=== PATIENT | male | born 1930 | race Caucasian/White ===

== ENCOUNTER 2018-02-23 10:43 | Day surgery (SDC) | payer MEDICARE ==
[2018-02-22 10:41] VITALS: BMI 15.6
[~2018-02-23 10:43] MED LIST: LACTATED RINGERS 1,000 ML IV SCH; LIDOCAINE 1% 20 ML VIAL (10MG/ML) FOR IV START INTRADERMA PRN
[2018-02-23 12:04] VITALS: TEMP 97.6
[2018-02-23] MEDS ORDERED: ePHEDrine SULFATE/0.9% NACL/PF 50 MG/5 ML SYRINGE IV ONE (12:50)
[2018-02-23] MEDS ORDERED: PROPOFOL 10 MG/ML 20 ML VIAL IV ONE (12:50)
--- NOTE | 2018-02-23 13:37 | P.PCN ---
Date of Procedure: 02/23/18 Procedure(s) Performed: Procedure: Esophagogastroduodenoscopy and replacement of gastrostomy feeding tube. Preoperative diagnosis: Feeding tube malfunction. Postoperative diagnosis: Replacement of gastrostomy feeding tube using CHAD bolus gastrostomy feeding tube size 18-[place] with balloon inflated to 7 mL. Preparation and sedation: Was provided by anesthesia. Brief clinical history: The patient is an 87-year-old male with history of mandibular cancer who was breathing issues and pre-esophageal dysphagia that required tracheostomy and gastrostomy feeding tube placement. The patient has been having issues with the feeding tube including leakage and the tube was recently dislodged and a temporary tube was placed in the emergency room but continues to have leakage and other problems. There is concern that the tube is not correctly placed. Procedure: With the patient in the supine position and after informed consent and adequate sedation, I removed the gastrostomy feeding tube after deflating the internal balloon and replaced it with an 18 [place] CHAD replacement gastrostomy feeding tube and inflated the internal balloon with 7 mL of saline. I confirmed the position of that tube by performing an upper endoscopy. I passed the Olympus-GIF H 190L video upper endoscope through the cricopharyngeus down the esophagus into the stomach then passed it through the pylorus into the duodenum. There was a small hiatal hernia. The balloon was noted in place in the stomach and no obvious abnormalities were seen in the esophagus, stomach and duodenum. The patient tolerated the procedure well. Plan: The patient and family were reassured. Discussed the management and local care of the feeding tube. Will resume feedings using the tube and further plans will be made based on his course.
[2018-02-23 14:31] VITALS: BP 134/72; PULSE 64; RESP 18
== END 2018-02-23 15:44 ==
LOC: ORWHC2ENDO 10:43
DX: K94.23 Gastrostomy malfunction (principal); K44.9 Diaphragmatic hernia without obstruction or gangrene; K21.9 Gastro-esophageal reflux disease without esophagitis; I11.0 Hypertensive heart disease with heart failure; I50.9 Heart failure, unspecified; F03.90 Unspecified dementia, unspecified severity, without behavioral disturbance, psychotic disturbance, mood disturbance, and anxiety; Z79.899 Other long term (current) drug therapy; Z85.818 Personal history of malignant neoplasm of other sites of lip, oral cavity, and pharynx; Z79.891 Long term (current) use of opiate analgesic; Z79.82 Long term (current) use of aspirin
CPT/HCPCS: 43246; J2704